=== PATIENT | female | born 1985 | race Caucasian/White ===

== ENCOUNTER 2017-07-27 19:09 | Emergency (ER) | payer SELFPAY ==
[2017-07-27] MEDS ORDERED: ALBUTEROL/IPRATROPIUM 1 VIAL SOL INH ONE (19:15)
[2017-07-27] MEDS ORDERED: ALBUTEROL/IPRATROPIUM 1 VIAL SOL ONE (19:19)
[2017-07-27 19:20] VITALS: TEMP 97
[2017-07-27] MEDS ORDERED: SOLUMEDROL 125 MG/2 ML 125 MG/2 ML PDS IM ONE (19:31)
[2017-07-27] MEDS ORDERED: SOLUMEDROL 125 MG/2 ML 125 MG/2 ML PDS ONE (19:32)
[2017-07-27] MEDS ORDERED: ALBUTEROL HFA 60 PUFF/INHALER INH ONE (19:37)
[2017-07-27] MEDS ORDERED: ALBUTEROL HFA 60 PUFF/INHALER INH PRN (19:46)
[2017-07-27 20:52] VITALS: BP 126/80; PULSE 97; RESP 22; O2SAT 97
== END 2017-07-27 19:55 | disposition home or self-care (01) | DRG 203 ==
LOC: ED 19:09
DX: J98.01 Acute bronchospasm (principal); J30.81 Allergic rhinitis due to animal (cat) (dog) hair and dander
CPT/HCPCS: 96372; 99283; J2930; J7620

== ENCOUNTER 2018-02-11 05:40 | Inpatient (IN) | payer OTHER ==
[2018-02-11] MEDS ORDERED: OXYTOCIN 10000 MU/ML SOL IM PRN (06:26)
[2018-02-11] MEDS ORDERED: SODIUM CHLORIDE 0.9% FLUSH 10 ML SOL IV PRN (06:26)
[2018-02-11] MEDS ORDERED: FENTANYL 100MCG/2ML SOL IV PRN (06:26)
[2018-02-11] MEDS ORDERED: METHYLERGONOVINE MALEATE 0.2 MG/ML SOL IM PRN (06:26)
[2018-02-11] MEDS ORDERED: CARBOPROST 250 MCG/ML SOL IM PRN (06:26)
[2018-02-11] MEDS ORDERED: MEPIVACAINE HCL 1% MPF 30 ML/VIAL SOL INFIL PRN (06:26)
[2018-02-11] MEDS ORDERED: LACTATED RINGERS 1,000 ML IV PRN (06:26)
[2018-02-11] MEDS ORDERED: AMPICILLIN 1 GM PDS 2 GM in SODIUM CHLORIDE 0.9% 100 ML 100 ML IV SCH (06:30)
[2018-02-11] MEDS ORDERED: CEFAZOLIN SODIUM 1 GM PDS ONE (06:38)
[2018-02-11] MEDS ORDERED: AMPICILLIN 1 GM PDS ONE ×5 (06:54→22:11)
[2018-02-11 06:55] LABS: BASOPHILS % (AUTO) 1 % (0-3); EOSINOPHILS % (AUTO) 1 % (0-9); HEMATOCRIT 38 % (35-47); HEMOGLOBIN 13.4 gm/dl (12.0-15.5); LYMPHOCYTES % (AUTO) 15.5 % (10-50); MEAN CORPUSCULAR HEMOGLOBIN 30.2 pg (27.0-32.0); MEAN CORPUSCULAR HGB CONC 35.1 gm/dl (32.0-36.0); MEAN CORPUSCULAR VOLUME 86 fL (81-99); MONOCYTES % (AUTO) 5.2 % (0-12); NEUTROPHILS % (AUTO) 77.7 % (37-80)
[2018-02-11] MEDS: SODIUM CHLORIDE 0.9% FLUSH 10 ML SOL IV SCH ×3 (07:06→22:21)
[2018-02-11] MEDS ORDERED: TERBUTALINE SULFATE 1 MG/ML SOL SC PRN (10:23)
[2018-02-11] MEDS: AMPICILLIN 1 GM PDS 1 GM in SODIUM CHLORIDE 0.9% 100 ML 100 ML IV SCH ×4 (10:29→22:21)
[2018-02-11] MEDS ORDERED: OXYTOCIN 10000 MU/ML 20,000 MU in LACTATED RINGERS 1,000 ML IV SCH (10:30)
[2018-02-11] MEDS ORDERED: LACTATED RINGERS 1,000 ML IV SCH (10:30)
[2018-02-11] MEDS ORDERED: MEPIVACAINE HCL 1% MPF 30 ML/VIAL SOL ONE (10:38)
[2018-02-11] MEDS ORDERED: OXYTOCIN 10000 MU/ML SOL ONE (10:40)
[2018-02-11] MEDS ORDERED: LACTATED RINGERS 1,000 ML ONE (10:40)
[2018-02-11] MEDS ORDERED: DIPHENHYDRAMINE 50 MG/ML SOL IV PRN (16:13)
[2018-02-11] MEDS ORDERED: NALBUPHINE HCL 20 MG/ML SOL IV PRN (16:13)
[2018-02-11] MEDS ORDERED: EPHEDRINE SULFATE 50 MG/ML SOL IV PRN (16:13)
[2018-02-11] MEDS ORDERED: NALOXONE HYDROCHLORIDE 0.4 MG/ML SOL IV PRN (16:13)
[2018-02-11] MEDS: LACTATED RINGERS 1,000 ML IV SCH ×2 (16:25→16:50)
[2018-02-11] MEDS ORDERED: LIDOCAINE HCL 2% MPF 10 ML SOL ONE (16:31)
[2018-02-11] MEDS ORDERED: ROPIVACAINE HYDROCHLORIDE 5 MG/ML SOL ONE (17:39)
[2018-02-11] MEDS ORDERED: FENTANYL 250 MCG/ 5ML SOL ONE (17:39)
[2018-02-11 18:19] LABS: APPEARANCE,URINE Clear; BILIRUBIN,URINE NEGATIVE (NEGATIVE); COLOR,URINE Light yellow; GLUCOSE, URINE (UA) NEGATIVE (NEGATIVE); KETONES,URINE 1+ (NEGATIVE); LEUKOCYTE ESTERASE ,URINE NEGATIVE (NEGATIVE); NITRATE,URINE NEGATIVE (NEGATIVE); OCCULT BLOOD,URINE NEGATIVE (NEG-TRACE); UROBILINOGEN,URINE 0.2 (0.2-1.0 EU)
[2018-02-11 18:32] LABS: BACTERIA TRACE (< 1+); CRYSTALS NEGATIVE (0-3 AVE/HPF); EPITHELIAL CELLS 0-1 (SQUAMOUS); RBC,URINE NEGATIVE (0-3AV/HPF); WBC,URINE 0-1 (0-5AV/HPF)
[2018-02-11] MEDS ORDERED: ONDANSETRON HCL 4 MG/2 ML SOL IV ONE (23:06)
[2018-02-12] MEDS: LACTATED RINGERS 1,000 ML IV SCH ×2 (00:49→08:24)
[2018-02-12] MEDS ORDERED: AMPICILLIN 1 GM PDS ONE (02:22)
[2018-02-12] MEDS: AMPICILLIN 1 GM PDS 1 GM in SODIUM CHLORIDE 0.9% 100 ML 100 ML IV SCH (02:28)
[2018-02-12] MEDS ORDERED: BENZOCAINE/MENTHOL 1 SPR TOP PRN (04:09)
[2018-02-12] MEDS ORDERED: APAP/HYDROCODONE 325/5 TAB PO PRN (04:09)
[2018-02-12] MEDS ORDERED: FLEET ENEMA PR PRN (04:09)
[2018-02-12] MEDS ORDERED: METHYLERGONOVINE MALEATE 0.2 MG TAB PO PRN (04:09)
[2018-02-12] MEDS ORDERED: WITCH HAZEL 1 EA PAD TOP PRN (04:09)
[2018-02-12] MEDS ORDERED: BISACODYL 10 MG SUP PR PRN (04:09)
[2018-02-12] MEDS ORDERED: TEMAZEPAM 15MG 15 MG CAP PO PRN (04:09)
[2018-02-12] MEDS: IBUPROFEN 600 MG TAB PO PRN ×3 (05:21→18:15)
[2018-02-12] MEDS: DOCUSATE SODIUM 100 MG SGL PO SCH ×2 (09:00→22:00)
[2018-02-13] MEDS: IBUPROFEN 600 MG TAB PO PRN ×3 (04:54→20:53)
[2018-02-13] MEDS: DOCUSATE SODIUM 100 MG SGL PO SCH ×2 (08:26→20:53)
[2018-02-13 18:36] VITALS: RESP 16
[2018-02-14 03:12] VITALS: TEMP 97.8
[2018-02-14] MEDS: DOCUSATE SODIUM 100 MG SGL PO SCH (08:51)
[2018-02-14 11:51] VITALS: BP 117/83; PULSE 90; O2SAT 98
== END 2018-02-14 13:48 | disposition home or self-care (01) | DRG 775 ==
LOC: OBSVTOIN 05:40 → OB 05:40
PROVIDERS: ADMIT Family Medicine; ATTEND Family Medicine
PROC: 3E04329 Introduction of Other Anti-infective into Central Vein, Percutaneous Approach (ICD-10-PCS; principal; 2018-02-11)
PROC: 10E0XZZ Delivery of Products of Conception, External Approach (ICD-10-PCS; 2018-02-11)
PROC: 0HQ9XZZ Repair Perineum Skin, External Approach (ICD-10-PCS; 2018-02-11)
DX: O80 Encounter for full-term uncomplicated delivery (principal); Z37.0 Single live birth; O99.824 Streptococcus B carrier state complicating childbirth; Z3A.38 38 weeks gestation of pregnancy
CPT/HCPCS: 36415; 59025; 81001; 85018; 85025; J0290; J0670; J0690; J2405; J2590; J2795; J3010; J3105; A9270-GY

== ENCOUNTER 2019-03-12 02:10 | Inpatient (IN) | payer OTHER ==
[2019-03-12] MEDS ORDERED: SODIUM CHLORIDE 0.9% FLUSH 10 ML SOL IV PRN (02:42)
[2019-03-12] MEDS ORDERED: LACTATED RINGERS 1,000 ML IV PRN (02:42)
[2019-03-12] MEDS ORDERED: CARBOPROST 250 MCG/ML SOL IM PRN (02:42)
[2019-03-12] MEDS ORDERED: OXYTOCIN 10000 MU/ML SOL IM PRN (02:42)
[2019-03-12] MEDS ORDERED: METHYLERGONOVINE MALEATE 0.2 MG/ML SOL IM PRN (02:42)
[2019-03-12] MEDS ORDERED: FENTANYL 100MCG/2ML SOL IV PRN (02:42)
[2019-03-12] MEDS ORDERED: MEPIVACAINE HCL 1% MPF 30 ML/VIAL SOL INFIL PRN (02:42)
[2019-03-12 02:48] LABS: BASOPHILS % (AUTO) 1 % (0-3); EOSINOPHILS % (AUTO) 1 % (0-9); HEMATOCRIT 36 % (35-47); HEMOGLOBIN 12.3 gm/dl (12.0-15.5); LYMPHOCYTES % (AUTO) 19.9 % (10-50); MEAN CORPUSCULAR HEMOGLOBIN 28.6 pg (27.0-32.0); MEAN CORPUSCULAR HGB CONC 33.7 gm/dl (32.0-36.0); MEAN CORPUSCULAR VOLUME 85 fL (81-99); MONOCYTES % (AUTO) 6.4 % (0-12); NEUTROPHILS % (AUTO) 72.4 % (37-80)
[2019-03-12] MEDS ORDERED: DIPHENHYDRAMINE 50 MG/ML SOL IV PRN (06:33)
[2019-03-12] MEDS ORDERED: EPHEDRINE SULFATE 50 MG/ML SOL IV PRN (06:33)
[2019-03-12] MEDS ORDERED: NALOXONE HYDROCHLORIDE 0.4 MG/ML SOL IV PRN (06:33)
[2019-03-12] MEDS ORDERED: NALBUPHINE HCL 20 MG/ML SOL IV PRN (06:33)
[2019-03-12] MEDS: LACTATED RINGERS 1,000 ML IV SCH ×4 (06:40→19:02)
[2019-03-12] MEDS ORDERED: FENTANYL 250 MCG/ 5ML SOL ONE (07:16)
[2019-03-12] MEDS ORDERED: ROPIVACAINE HYDROCHLORIDE 5 MG/ML SOL ONE (07:17)
[2019-03-12] MEDS ORDERED: LIDOCAINE HCL 2% MPF 10 ML SOL ONE (07:17)
[2019-03-12] MEDS ORDERED: LIDOCAINE 1% W/EPI MPF 30 ML SOL ONE (07:21)
[2019-03-12] MEDS ORDERED: APAP/HYDROCODONE 1 EACH TABLET PO PRN (11:03)
[2019-03-12] MEDS ORDERED: WITCH HAZEL 1 EA PAD TOP PRN (11:03)
[2019-03-12] MEDS ORDERED: TEMAZEPAM 15MG 15 MG CAP PO PRN (11:03)
[2019-03-12] MEDS ORDERED: FLEET ENEMA PR PRN (11:03)
[2019-03-12] MEDS ORDERED: METHYLERGONOVINE MALEATE 0.2 MG TAB PO PRN (11:03)
[2019-03-12] MEDS ORDERED: BISACODYL 10 MG SUP PR PRN (11:03)
[2019-03-12] MEDS ORDERED: BENZOCAINE/MENTHOL 1 SPR TOP PRN (11:03)
[2019-03-12] MEDS: SODIUM CHLORIDE 0.9% FLUSH 10 ML SOL IV SCH ×2 (19:30→19:35)
[2019-03-12] MEDS: DOCUSATE SODIUM 100 MG SGL PO SCH (20:35)
[2019-03-12] MEDS: IBUPROFEN 600 MG TAB PO PRN (20:35)
[2019-03-13] MEDS: IBUPROFEN 600 MG TAB PO PRN ×3 (04:31→21:39)
[2019-03-13] MEDS: DOCUSATE SODIUM 100 MG SGL PO SCH ×2 (10:18→21:38)
[2019-03-14 03:24] VITALS: RESP 16
[2019-03-14 08:33] VITALS: BP 121/83; PULSE 86; TEMP 98.2; O2SAT 98
[2019-03-14] MEDS: DOCUSATE SODIUM 100 MG SGL PO SCH (09:58)
== END 2019-03-14 13:30 | disposition home or self-care (01) | DRG 204 ==
LOC: OB 02:10 → OBSVTOIN 02:10 → OB 13:04
PROVIDERS: ADMIT Family Medicine; ATTEND Family Medicine
PROC: 10E0XZZ Delivery of Products of Conception, External Approach (ICD-10-PCS; principal; 2019-03-12)
PROC: 6A550ZT Pheresis of Cord Blood Stem Cells, Single (ICD-10-PCS; 2019-03-12)
DX: R06.02 Shortness of breath (principal); O80 Encounter for full-term uncomplicated delivery; Z3A.39 39 weeks gestation of pregnancy; Z37.0 Single live birth
CPT/HCPCS: 36415; 59025; 84112; 85018; 85025; J0670; J2590; J2795; J3010; A9270-GY